=== PATIENT | male | born 1960 | race Caucasian/White ===

== ENCOUNTER 2016-07-26 12:57 | Emergency (ER) | payer MEDICARE, OTHER ==
[~2016-07-26] VITALS: Ht 185.4 cm; Wt 81.5 kg
[2016-07-26] MEDS ORDERED: COLCHICINE 0.6 MG TABLET PO ONE (14:15)
[2016-07-26 14:54] VITALS: BP 150/96
== END 2016-07-26 15:29 | disposition home or self-care (01) ==
LOC: EMS 12:59
DX: M10.9 Gout, unspecified (principal); I10 Essential (primary) hypertension
CPT/HCPCS: 99283